=== PATIENT | female | born 1965 | race Two or more races ===

== ENCOUNTER → 2022-10-05 | Outpatient (CLI) | payer MEDICAID ==
[~2022-10-05] VITALS: Ht 152.4 cm; Wt 79.4 kg
[~2022-10-05] MED LIST: REGADENOSON 0.4 MG/5 ML SYRG IV ONE
== END | disposition home or self-care (01) ==
LOC: XYW 08:37
PROVIDERS: ATTEND Specialist
DX: R06.02 Shortness of breath (principal); I10 Essential (primary) hypertension
CPT/HCPCS: 78452; 93017; A9500; J2785